=== PATIENT | male | born 1955 | race Caucasian/White ===

== ENCOUNTER 2019-02-02 17:32 | Observation (INO) ==
[2019-02-02 19:20] LABS: Basophils % 0.3 %; Eosinophils # 0.3 K/mcL (0.0-0.6); Eosinophils % 3.5 %; Hematocrit 41.1 % (37.5-50.1); Hemoglobin 13.7 g/dL (12.9-16.9); Immature Granulocytes % 1.2 % (0-4); Lymphocytes # 1.3 K/mcL (0.6-4.6); Lymphocytes % 17.4 %; Mean Corpuscular HGB Conc 33.3 g/dL (31.6-35.5); Mean Corpuscular Hemoglobin 29.9 pg (28.0-33.3); Mean Corpuscular Volume 89.7 fL (83.0-100.0); Mean Platelet Volume 9.2 fL (9.4-12.4); Monocytes # 0.7 K/mcL (0.0-1.3); Monocytes % 8.9 %; Neutrophils # 5.1 K/mcL (1.6-8.9); Platelet Count 231 K/mcL (140-400); Red Blood Count 4.58 M/mcL (4.19-5.50); Red Cell Distribution Width 13.9 % (11.5-14.5); Segmented Neutrophils % 68.7 %; White Blood Count 7.5 K/mcL (4.3-11.1)
[2019-02-02 19:39] LABS: BUN/Creatinine Ratio 12 (6-26); Blood Urea Nitrogen 11 mg/dL (8-23); Calcium 9.5 mg/dL (8.6-10.3); Carbon Dioxide 32 mEq/L (23-29); Chloride 98 mEq/L (98-107); Glucose 173 mg/dL (70-105); Osmolality,Calculated 292 (280-300); Potassium 3.5 mEq/L (3.5-5.1); Sodium 139 mEq/L (136-145); eGFR For African Americans > 60 (> 60); eGFR For Non-African Americans > 60 (> 60)
[2019-02-02] MEDS ORDERED: Naloxone 0.4 MG/ML INJ IVP PRN (22:44)
[2019-02-02] MEDS: 0.9 % Sodium Chloride 1,000 ML IVC SCH (23:06)
[2019-02-03] MEDS: Acetaminophen 325 MG TABLET PO PRN ×2 (04:34→21:36)
[2019-02-03] MEDS: *HR* Heparin 5,000 UNIT/ML VIAL SQ SCH ×2 (04:34→17:11)
[2019-02-03 05:21] LABS: Hemoglobin 13.4 g/dL (12.9-16.9); Mean Corpuscular HGB Conc 32.7 g/dL (31.6-35.5); Mean Corpuscular Volume 91.7 fL (83.0-100.0); Mean Platelet Volume 8.9 fL (9.4-12.4); Platelet Count 217 K/mcL (140-400); Red Blood Count 4.47 M/mcL (4.19-5.50); Red Cell Distribution Width 13.8 % (11.5-14.5); White Blood Count 6.6 K/mcL (4.3-11.1)
[2019-02-03 05:42] LABS: BUN/Creatinine Ratio 12 (6-26); Blood Urea Nitrogen 11 mg/dL (8-23); Calcium 9.1 mg/dL (8.6-10.3); Carbon Dioxide 35 mEq/L (23-29); Chloride 100 mEq/L (98-107); Glucose 117 mg/dL (70-105); Osmolality,Calculated 292 (280-300); Potassium 3.5 mEq/L (3.5-5.1); Sodium 141 mEq/L (136-145); eGFR For African Americans > 60 (> 60); eGFR For Non-African Americans > 60 (> 60)
[2019-02-03] MEDS: 0.9 % Sodium Chloride 1,000 ML IVC SCH (06:10)
[2019-02-03] MEDS: amLODIPine 5 MG TABLET PO SCH (07:50)
[2019-02-03] MEDS: Metoprolol XL (24 HR) Succ 50 MG TAB.ER.24H PO SCH (07:50)
[2019-02-03] MEDS: Losartan/HCTZ 50-12.5 TABLET PO SCH (07:50)
[2019-02-03 11:18] LABS: Estimated Average Glucose 154 mg/dl
[2019-02-03] MEDS ORDERED: *HR* Dextrose 50 % in Water (Syg) 50 ML SYRINGE IVP PRN (12:07)
[2019-02-03] MEDS ORDERED: Dextrose Gel 15 GM/37.5 ML TUBE PO PRN ×2 (12:07)
[2019-02-03] MEDS ORDERED: D5% in Water 1,000 ML IVC PRN (12:07)
[2019-02-03] MEDS: Insulin LISPRO 300 UNITS/3 ML VIAL SQ SCH (17:10)
[2019-02-03] MEDS ORDERED: Ketorolac 15 MG/ML VIAL IVP ONE (21:45)
[2019-02-04] MEDS: *HR* Heparin 5,000 UNIT/ML VIAL SQ SCH (06:03)
[2019-02-04] MEDS: amLODIPine 5 MG TABLET PO SCH (07:45)
[2019-02-04] MEDS: Losartan/HCTZ 50-12.5 TABLET PO SCH (07:45)
[2019-02-04] MEDS: Metoprolol XL (24 HR) Succ 50 MG TAB.ER.24H PO SCH (07:46)
[2019-02-04] MEDS: Insulin LISPRO 300 UNITS/3 ML VIAL SQ SCH ×2 (07:48→11:34)
[2019-02-04 11:21] VITALS: BP 152/77
[2019-02-04] MEDS ORDERED: Aminoglycoside Consult 1 EACH MC ONE (13:53)
== END 2019-02-04 13:54 | disposition home or self-care (01) ==
LOC: EMEROOARM 17:32 → 3ANU 17:32 → SUATTDRO 20:44 → 3ANU 22:00
PROVIDERS: ADMIT Family Medicine; ATTEND Internal Medicine